=== PATIENT | male | born 1995 | race Caucasian/White ===

== ENCOUNTER 2019-10-07 20:15 | Emergency (ER) | payer SELFPAY ==
[2019-10-07] MEDS ORDERED: Sodium Chloride 0.9% 2.5 ML Syringe FLUSH PRN (20:17)
[2019-10-07] MEDS ORDERED: Sodium Chloride 0.9% 10 ML SDV IV PRN (20:17)
[2019-10-07] MEDS ORDERED: Sodium Chloride 0.9% 10 ML Syringe FLUSH PRN (20:17)
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
--- NOTE | 2019-10-07 20:44 | CR ---
Pelvis: AP view of the pelvis was obtained. Comparison: No previous study. Minimal offset of the pubic symphysis is noted. Sacroiliac joints appear normal. Joint spaces within both hips are maintained. No discrete fracture or other abnormality is seen. Impression: 1. Slight offset of the pubic symphysis. This is likely incidental if patient has no symptoms of unstable pelvis. 2. AP pelvis study is otherwise unremarkable. Diagnostic code #3 Study was dictated in MDT
--- NOTE | 2019-10-07 20:45 | CR ---
Chest: Supine view of the chest was obtained. Comparison: No prior chest imaging is available. Heart size and mediastinum are normal. Lungs are clear with no acute parenchymal change. Minimal scoliosis is present within the upper thoracic spine. Impression: 1. Nothing acute is appreciated on supine chest x-ray. Diagnostic code #2 Study was dictated in MDT
[2019-10-07 20:55] LABS: BLOOD UREA NITROGEN,BUN 10 mg/dL (7.0-18.0); CARBON DIOXIDE,CO2 26.7 mmol/L (21.0-32.0); CHLORIDE,CL 104 mmol/L (98-107); GLUCOSE RANDOM 97 mg/dL (74-106); POTASSIUM,K 3.4 mmol/L (3.5-5.1); SODIUM,NA 140 mmol/L (136-148)
[2019-10-07] MEDS ORDERED: Bupivacaine 0.5% 30 ML SDV INFILT ONE (20:59)
[2019-10-07] MEDS ORDERED: Bupivacaine 0.5% 10 ML SDV ONE (21:10)
[2019-10-07] MEDS ORDERED: Bupivacaine 0.5% 10 ML SDV INJECT ONE (21:11)
--- NOTE | 2019-10-07 21:16 | CT ---
Head CT Technique: Multiple axial sections through the brain were obtained. Intravenous contrast was not utilized. Comparison: No prior intracranial imaging is available. Findings: Ventricles along with basal cisterns and sulci over the convexities are within normal limits for the patient's age. No abnormal parenchymal densities are seen. No evidence of intracranial hemorrhage. No midline shift or mass effect is seen. Bone window settings were reviewed. Visualized paranasal sinuses show minimal areas of mucosal thickening and possible small retention cysts which are felt to be pre-existing and chronic. No acute mastoid sinus finding is seen. No acute calvarial abnormality is appreciated. Impression: 1. Nothing acute is appreciated on noncontrast head CT exam. Diagnostic code #1 Study was dictated in MDT
[2019-10-07] MEDS ORDERED: Iopamidol 755 Mg/ML 100 ML Bottle IVPUSH ONE (21:17)
--- NOTE | 2019-10-07 21:21 | CT ---
CT cervical spine Technique: Multiple axial sections were obtained from above C1 inferiorly to the bottom of T2. Reconstructed sagittal and coronal images were obtained. Findings: Vertebral body heights and disc spaces are preserved. No bony central or bony neural foraminal stenosis is seen. No fracture is appreciated. No abnormal subluxation is seen. No discrete traumatic disc herniation is appreciated. Impression: 1. Nothing acute is appreciated on CT study of the cervical spine. Diagnostic code #1 Study was dictated in MDT
--- NOTE | 2019-10-07 21:22 | CT ---
CT chest Technique: Multiple axial sections were obtained from above the lung apices inferiorly through the lung bases. Intravenous contrast was utilized. Findings: Mediastinum and hilar regions appear within normal limits. No mediastinal hematoma is seen. No axillary adenopathy is seen. Aorta shows no aneurysm. Lung window settings were reviewed. No acute parenchymal change is seen. No pleural effusions are seen. No pulmonary contusion is noted. No pneumothorax is seen. Bone window settings were reviewed. No discrete rib fracture is appreciated. Thoracic spine shows no acute finding. Reconstructed sagittal images of the sternum show no fracture. Impression: 1. Nothing acute is appreciated on CT study of the chest. Diagnostic code #1 Study was dictated in MDT
--- NOTE | 2019-10-07 21:23 | CT ---
CT thoracic spine Technique: Multiple axial sections through the thoracic spine were obtained. Reconstructed coronal and sagittal images were reviewed. Findings: There is a partial block vertebra being seen at T4-T5 which is considered a normal variant. Vertebral body heights and disc spaces are otherwise maintained. No fracture is seen. No bony central or bony neural foraminal stenosis is seen. No abnormal subluxation is appreciated. No gross disc herniation is seen. Impression: 1. Partial block vertebra at T4-T5. 2. Nothing acute is appreciated on CT study of the thoracic spine. Diagnostic code #2 Study was dictated in MDT
--- NOTE | 2019-10-07 21:31 | CT ---
CT lumbar spine Technique: Multiple axial sections were obtained through the lumbar spine. Reconstructed coronal and sagittal images were obtained. Findings: Vertebral body heights and disc spaces are fairly well preserved. Sacroiliac joints are within normal limits. No fracture is appreciated. No abnormal subluxation is seen. Diffuse posterior disc bulge and possible left sided disc herniation at L4-L5 is seen. Posterior disc bulge at L5-S1 believed to be physiologic. Other disks are fairly well maintained. Impression: 1. Diffuse posterior disc bulge and possible left sided disc herniation at L4-L5. MRI would be needed to confirm if clinically indicated. 2. Mild disc bulge at L5-S1 which is felt to be physiologic. 3. No acute fracture or abnormal subluxation is seen. Diagnostic code #3 Study was dictated in MDT
--- NOTE | 2019-10-07 21:52 | CT ---
CT abdomen and pelvis Technique: Multiple axial sections were obtained from above the dome of the diaphragm inferiorly through the pubic symphysis. Intravenous contrast was given. No oral contrast was utilized. Findings: Liver contains no focal parenchymal abnormality. Spleen appears normal. Adrenal glands show no nodule. Pancreas is within normal limits. Kidneys show symmetric contrast enhancement without hydronephrosis or mass. Aorta shows no aneurysm. Gallbladder contains no calcified gallstones. No retroperitoneal adenopathy or mesenteric abnormalities are seen. No pelvic mass or adenopathy is seen. No free fluid or inflammatory change is appreciated. Appendix is seen and is normal in size. Bone window settings were reviewed. No pelvic fracture is appreciated. Impression: 1. Nothing acute is seen on CT study of the abdomen and pelvis. Diagnostic code #1 Study was dictated in MDT
== END 2019-10-07 22:45 | disposition home or self-care (01) ==
LOC: MW.ED 20:15
DX: S21.211A Laceration without foreign body of right back wall of thorax without penetration into thoracic cavity, initial encounter (principal); S70.211A Abrasion, right hip, initial encounter; E80.6 Other disorders of bilirubin metabolism; Z88.8 Allergy status to other drugs, medicaments and biological substances; V87.7XXA Person injured in collision between other specified motor vehicles (traffic), initial encounter
CPT/HCPCS: 12002; 36415; 70450; 71045; 71260; 72125; 72131; 72170; 74177; 80053; 84484; 85025; 85610; 93005; 99284; J3490; Q9967; 72128; 72128-26

== ENCOUNTER 2019-10-16 15:06 | Emergency (ER) | payer SELFPAY | END 2019-10-16 15:16 | disposition home or self-care (01) | LOC: MW.ED 15:06 | DX: Z53.21 Procedure and treatment not carried out due to patient leaving prior to being seen by health care provider (principal) ==